=== PATIENT | female | born 1985 | race Caucasian/White ===

== ENCOUNTER 2017-06-09 11:20 | Outpatient (CLI) | payer BC | END 2017-06-09 11:21 | disposition home or self-care (01) | LOC: LAB 11:20 | PROVIDERS: ATTEND Psychiatry & Neurology Neurology | DX: E75.2 Other sphingolipidosis (principal) | CPT/HCPCS: 36415; 81330; 81599 ==

== ENCOUNTER 2017-09-23 15:08 | Outpatient (CLI) | payer BC, MEDICAID ==
[2017-09-23 15:45] LABS: ALBUMIN 4.3 g/dL (3.2-5.5); ALBUMIN/GLOBULIN RATIO 1.9 (1.0-2.2); BILIRUBIN,TOTAL 0.3 mg/dL (0.2-1.0); CALCIUM 9.1 mg/dL (8.5-10.3); CREATININE 0.7 mg/dL (0.4-1.0); TOTAL PROTEIN 6.6 g/dL (6.7-8.2)
[2017-09-23 15:52] LABS: BASOPHILS % (AUTO) 0.7 %; EOSINOPHILS # (AUTO) 0.1 10^3/uL (0.0-0.7); EOSINOPHILS % (AUTO) 1.7 %; HGB - HEMOGLOBIN 13.4 g/dL (12.0-16.0); LYMPHOCYTES # (AUTO) 2.1 10^3/uL (1.5-3.5); LYMPHOCYTES % (AUTO) 36.8 %; MEAN CORPUSCULAR HGB CONC 33.9 g/dL (32.0-36.0); MEAN CORPUSCULAR VOLUME 88.4 fL (81.0-99.0); MONOCYTES # (AUTO) 0.5 10^3/uL (0.0-1.0); NEUTROPHILS % (AUTO) 52.8 %; PLT - PLATELET COUNT 242 10^3/uL (130-450); RED BLOOD COUNT 4.48 10^6/uL (4.20-5.40); RED CELL DISTRIBUTION WIDTH 12.4 % (12.0-15.0); WHITE BLOOD COUNT 5.7 x10^3/uL (4.8-10.8)
== END 2017-09-23 15:09 | disposition home or self-care (01) ==
LOC: LAB 15:08
PROVIDERS: ATTEND Obstetrics & Gynecology
DX: Z01.812 Encounter for preprocedural laboratory examination (principal); T83.89XA Other specified complication of genitourinary prosthetic devices, implants and grafts, initial encounter; R80.9 Proteinuria, unspecified; Z13.9 Encounter for screening, unspecified
CPT/HCPCS: 36415; 80053; 84702; 85025

== ENCOUNTER 2017-09-24 09:41 | Day surgery (SDC) | payer BC, MEDICAID ==
--- NOTE | 2017-09-23 16:33 | PREOP HISTORY & PHYSICAL ---
DATE OF SERVICE: 09/24/2017 Physician: Wendi Dillon DO IDENTIFICATION: This is a 32-year-old G2, P2-0-0-2. HISTORY OF PRESENT ILLNESS: The patient presents today for her preoperative visit. Initially, I met the patient with her mother, Sonia, on 09/10/2017. The patient has had a Mirena placed shortly after her son was born, about 5 years ago. She was told that she needed it to be replaced in November of 2017. The patient unfortunately was found to have advanced frontotemporal dementia. She is currently under the care and living with her mother, Sonia Rincon. Sonia is her durable power of energy attorney for medicine. It has been easier for Sonia to care for the patient not having to worry about her menses. I attempted to replace her Mirena IUD on 09/10/2017, but I could not do this without the patient being in some amount of discomfort. Instead of attempting to have the patient return, Sonia has instead decided to have the patient do this under anesthesia. I discussed with Sonia the risks, benefits, alternatives, indications, expectations of a hysteroscopy, dilatation and curettage and replacement of Mirena IUD. Included in our discussion was the risk of anesthesia, hemorrhage, infection and damage to surrounding organs. With respect to damage to surrounding organs, the most common complication is uterine perforation. After Sonia's questions were answered to her satisfaction, she verbalized her desire to proceed with surgery. Consent forms have been signed. Currently, the patient has been diagnosed with a urinary tract infection. Prior to her visit with me, she just came from Rowan Kelley's office and was sent a prescription for antibiotics. Sonia also tells me that Rowan Kelley would like to have the patient's kidney functions tested. Finally, Sonia has remarked that the patient's neurologist, Rut Mckenzie MD at [facility] has recommended the patient to go under conscious sedation for anesthesia. Sonia did not know the specifics of why. Sonia also was concerned that there may be a side effect of the patient taking some medications, particularly when I gave her a prescription for Vicodin. She would like me to ask Dr. Mckenzie if with this was a contraindication for the patient. PAST MEDICAL HISTORY: 1. Advanced frontotemporal dementia. 2. Chronic pain. PAST SURGICAL HISTORY: 1. Tonsils and adenoids in 2002. 2. Excision of left flank lipoma. 3. In 2005, LEEP. 4. In 2010, left neck lymph nodes. 5. [place] teeth excision. MEDICATIONS: 1. Bupropion 100 mg 1 tab p.o. daily. 2. Sertraline 25 mg 1 tab p.o. daily. ALLERGIES: SULFA AND SHE HAS HIVES. SOCIAL HISTORY: The patient is under the care and living with her mother, Sonia Rincon. The patient is to César "Kain Barroso. He is currently living with their 2 children in [place]. The patient formerly was a legal aide. Rowan Kelley is her primary care provider and her pharmacy of choice is [facility] in [place], [place]. PAST OBSTETRICAL HISTORY: Two term spontaneous vaginal deliveries. PAST GYNECOLOGY HISTORY: Maryse does have a history of abnormal Pap smears with the resultant 2005 LEEP. She has a history of HPV condyloma. FAMILY HISTORY: She denies any female carcinoma. REVIEW OF SYSTEMS: Negative unless otherwise stated. She denies any nausea, vomiting, fevers, chills, diarrhea, constipation. PHYSICAL EXAMINATION: VITAL SIGNS: Height is 66 inches, weight 115 pounds, BMI is 18.6. Blood pressure is 110/60. GENERAL: The patient is a well-developed, very thin lady, who is very anxious. The patient is nonverbal, but does obey commands. During our first visit together, she was able to talk to me once her level of anxiety had decreased. At today's visit, the patient is ambulating and jumping around with her bottle of water. HEENT: Within normal limits. She does wear glasses. CARDIOVASCULAR: Rate is regular. No murmurs or rubs. PULMONARY: Lungs are clear to auscultation bilaterally. FEMALE EGBUS: Within normal limits. Vagina is pink and moist. Cervix within normal limits. UD strings were not visualized. ASSESSMENT: 1. A 32-year-old G2, P2-0-0-2. 2. Desires replacement of Mirena intrauterine device. PLAN: 1. We will proceed to a scheduled hysteroscopy and D and C and replacement of Mirena IUD on 09/24/2017. 2. The patient will get a test. 3. We will speak to Dr. Rut Mckenzie and ask her if there are any particular reasons why general anesthesia is contraindicated and why the patient will need conscious sedation. 4. The patient will seen me at [facility] in 2 weeks for a routine postop visit. TD: 09/23/2017 16:33 [facility]
[2017-09-24] MEDS ORDERED: CELECOXIB 100 MG CAPSULE PO ONE (09:55)
[2017-09-24] MEDS ORDERED: LACTATED RINGERS 1,000 ML IV ONE ×2 (10:17→11:48)
[2017-09-24] MEDS ORDERED: KETAMINE 500 MG/10 ML VIAL IVP ONE (10:40)
[2017-09-24] MEDS ORDERED: SODIUM CHLORIDE 0.9% 10 ML VIAL IV ONE (10:40)
[2017-09-24] MEDS ORDERED: MIDAZOLAM 2 MG/2 ML VIAL IVP ONE (10:40)
[2017-09-24] MEDS ORDERED: KETOROLAC 30 MG/ML VIAL IVP ONE (10:40)
--- NOTE | 2017-09-24 12:06 | OPERATIVE REPORT ---
Operative Report - Other Other Information/Narrative: Date of Operation: 09/24/2017 Surgeon: Wendi Dillon DO FACOG Signal Inspector: None Financial Aid: Celso Talavera CRNA Anesthesia: Conscious sedation Pre-op Dx: 1. 32 yo 2. Desired replacement of Mirena IUD Post-op Dx: 1. 32 yo 2. Desired replacement of Mirena IUD Procedure: 1. Dilation 2. Replacement of Mirena IUD 3. Pap smear Findings: 1. No IUD string seen on initial exam 2. Normal cervix 3. New Mirena IUD, LOT [id number] Specimens: 1. Mirena IUD 2. Thin prep with HR HPV Drains: None EBL: None Complications: None Dictation: [id number]
[2017-09-24 12:54] VITALS: BP 94/62
--- NOTE | 2017-09-24 12:59 | PROCEDURE REPORT ---
DATE OF SERVICE: 09/24/2017 PREOPERATIVE DIAGNOSES 1. A 32-year-old G2, P2-0-0-2. 2. Desired replacement of Mirena intrauterine device. POSTOPERATIVE DIAGNOSES 1. A 32-year-old G2, P2-0-0-2. 2. Desired replacement of Mirena intrauterine device. PROCEDURES PERFORMED 1. Dilatation. 2. Replacement of Mirena intrauterine device. 3. Pap smear. SURGEON: Wendi Dillon DO, FACOG HEAT TREATMENT TECHNICIAN: None AERIAL ADVERTISER: Celso Talavera CRNA ANESTHESIA: Conscious sedation. FINDINGS 1. No IUD string seen on initial cervical examination. 2. Normal cervix. 3. Mirena IUD, lot number [id number]. SPECIMENS 1. Mirena IUD. 2. ThinPrep with high risk human papilloma virus screening. DRAINS: None. ESTIMATED BLOOD LOSS: None. COMPLICATIONS: None. BRIEF HISTORY: The patient is a patient of [facility] who has an expiring Mirena IUD. It should be replaced in November 2017. I saw her in the clinic and unfortunately the IUD strings were not seen. I attempted to remove the IUD in the office, but unfortunately I could not do so without placing the patient in significant discomfort. At this point in time, Sonia Foss, the patient's mother and power of prosecuting attorney, desired to have her undergo replacement of her Mirena IUD under anesthesia. I discussed with Sonia the risks, benefits, alternatives, indications, expectations of a hysteroscopy, dilatation, curettage and replacement of Mirena IUD. I discussed with her the risks, which included anesthesia, hemorrhage, infection and damage to surrounding organs. With respect to damage to surrounding organs, this may include, but is not limited to, an inadvertent laceration, cauterization or trauma to adjacent organs. In this situation, the most common complication is uterine perforation. After Sonia's questions were answered to her satisfaction, she verbalized her desire to proceed with surgery. Consent forms have been signed. OPERATION IN DETAIL: The patient was identified, consented, and taken to the operating room where IV access was already in place. She was then given sequential compression devices and conscious sedation. She was then prepped and draped in normal sterile fashion in lithotomy position using the [place] stirrups. A timeout was performed, which correctly identified the patient, site of the procedure, and procedures themselves. Antibiotics were not indicated in this case. An open-sided speculum was placed in the vagina. A single-tooth tenaculum was placed on the anterior lip of the cervix. The cervix was serially dilated to a 6-Sinhala. The IUD was blindly grasped with graspers and removed easily. A new Mirena IUD was then replaced and the strings were trimmed approximately 3 cm from the external cervical os. Finally, a Pap smear was performed so that she would not have to have a Pap smear for another 5 years, assuming that the Pap smear and HPV were negative. At this point in time, the procedure had been completed. All instruments were removed from the vagina, and the vagina and cervix were found to be hemostatically stable. The patient was taken back to the recovery room in stable condition. I will see the patient and her mother, Sonia, in 2 weeks for routine postop visit. I have given Sonia prescriptions for ibuprofen as well as Vicodin for the patient's postop recovery. Sonia is to call should she have any worsening fevers, chills, abdominal pain or vaginal bleeding. All sponge and lap counts were correct x2 as per nurse report. cc: Treva De Guzman MD TD: 09/24/2017 12:34 [facility]
== END 2017-09-24 09:42 | disposition home or self-care (01) ==
LOC: SDS 09:41
PROVIDERS: ATTEND Obstetrics & Gynecology
PROC: 0U2DXHZ Change Contraceptive Device in Uterus and Cervix, External Approach (ICD-10-PCS; 2017-09-24)
PROC: 0U2DXHZ Change Contraceptive Device in Uterus and Cervix, External Approach (ICD-10-PCS; principal; 2017-09-24 11:00)
DX: Z30.433 Encounter for removal and reinsertion of intrauterine contraceptive device (principal); G31.09 Other frontotemporal neurocognitive disorder; F02.80 Dementia in other diseases classified elsewhere, unspecified severity, without behavioral disturbance, psychotic disturbance, mood disturbance, and anxiety
CPT/HCPCS: 58300; 58301; A9270; J7120; 88300

== ENCOUNTER 2017-10-30 23:03 | Emergency (ER) | payer BC, MEDICAID ==
[2017-10-30 23:11] VITALS: BP 98/59
[2017-10-31 00:44] LABS: BILIRUBIN,URINE NEGATIVE (NEGATIVE); GLUCOSE, URINE (UA) NEGATIVE (NEGATIVE); KETONES,URINE (UA) NEGATIVE (NEGATIVE); LEUKOCYTE ESTERASE, URINE NEGATIVE (NEGATIVE); NITRITE,URINE NEGATIVE (NEGATIVE); OCCULT BLOOD,URINE NEGATIVE (NEGATIVE); PH,URINE 6.5 PH (5.0-7.5); PROTEIN,URINE NEGATIVE (NEGATIVE); UROBILINOGEN,URINE 0.2 (NORMAL) E.U./dL (NORMAL)
[2017-10-31 00:46] LABS: CLARITY,URINE CLEAR (CLEAR); HCG UR QUAL NEGATIVE
--- NOTE | 2017-10-31 01:08 | ED Physician Documentation ---
PD HPI FEMALE - Stated complaint Stated Complaint: FREQ URINATION - Chief complaint Chief Complaint: Abd Pain - History obtained from History obtained from: Family - History of Present Illness Timing - onset: Today Timing - details: Gradual onset, Still present Associated symptoms: Urinary frequency Similar symptoms before: Work up / diagnostics, Treatment Recently seen: Not recently seen - Additional information Additional information: Patient is a 32 year old female with a rare genetic condition, frontal temporal dementia, who is brought in by parents for increased urinary frequency and agitation. Family states that they noticed her going to the bathroom multiple times today and she seemed more agitated than usual. Family reports that last time this happened patient had a urinary tract infection. Review of Systems Unable to obtain: Dementia PD PAST MEDICAL HISTORY - Past Medical History Past Medical History: Yes Other Past Medical History: Frontal Temporal Dementia - Past Surgical History Past Surgical History: No - Present Medications Home Medications: Ambulatory Orders Medication Instructions Recorded Confirmed Alprazolam [Xanax] 0 mg PO Q8HR PRN 09/24/17 09/24/17 Escitalopram [Lexapro] 20 mg PO DAILY 09/24/17 09/24/17 - Allergies Allergies/Adverse Reactions: Allergies Allergy/AdvReac Type Severity Reaction Status Date / Time Sulfa (Sulfonamide Allergy Unknown Verified 09/24/17 08:57 Antibiotics) - Social History Does the pt smoke?: No Smoking Status: Never smoker Does the pt drink ETOH?: No Does the pt have substance abuse?: No - Immunizations Immunizations are current?: No PD ED PE NORMAL - Vitals Vital signs reviewed: Yes - General General: No acute distress - HEENT HEENT: Atraumatic - Cardiac Cardiac: RRR - Respiratory Respiratory: No respiratory distress - Derm Derm: Normal color, No rash - Neuro Neuro: No motor deficit Eye Opening: Spontaneous PD ED PE EXPANDED - Neuro Neuro: Other (patient is awake and alert but non verbal, parents state at baseline) Results - Vitals Vitals: Vital Signs - 24 hr 10/30/17 23:08 Temperature 36.3 C L Heart Rate 69 Respiratory 20 Rate Blood Pressure 98/59 L O2 Saturation 97 Oxygen O2 Source Room air - Labs Labs: Laboratory Tests 10/31/17 00:22 Urine Color YELLOW Urine Clarity CLEAR Urine pH 6.5 Ur Specific [place] 1.010 Urine Protein NEGATIVE Urine Glucose (UA) NEGATIVE Urine Ketones NEGATIVE Urine Occult Blood NEGATIVE Urine Nitrite NEGATIVE Urine Bilirubin NEGATIVE Urine Urobilinogen 0.2 (NORMAL) Ur Leukocyte Esterase NEGATIVE Ur Microscopic Review NOT INDICATED Urine Culture Comments NOT INDICATED Urine HCG, Qual NEGATIVE PD MEDICAL DECISION MAKING - ED course Complexity details: reviewed old records, reviewed results, considered differential, d/w family ED course: patient was seen and examined at bedside. patient's urine was collected. when patient's urinalysis results came back there was no sign of infection. family was made aware of the findings and patient was stable for discharge with outpatient followup. - Sepsis Event Vital Signs: Vital Signs - 24 hr 10/30/17 23:08 Temperature 36.3 C L Heart Rate 69 Respiratory 20 Rate Blood Pressure 98/59 L O2 Saturation 97 Oxygen O2 Source Room air Departure - Departure Disposition: 01 Home, Self Care Clinical Impression: Urinary frequency Condition: Good Instructions: ED UTI Cystitis Female Follow-Up: Rowan Kelley ARNP [Primary Care Provider] - As Needed Comments: Your diagnostics today were within normal limits. there were no signs of urinary tract infection. you should follow up with your doctor if your symptoms persist. you may return to the emergency department at any time for new, worsening or uncontrollable symptoms. Discharge Date/Time: 10/31/17 00:59
== END 2017-10-31 00:59 | disposition home or self-care (01) ==
LOC: ED 23:03
DX: R35.0 Frequency of micturition (principal); F03.90 Unspecified dementia, unspecified severity, without behavioral disturbance, psychotic disturbance, mood disturbance, and anxiety
CPT/HCPCS: 81001; 81003; 81025; 87086; 99282; 99283

== ENCOUNTER 2017-11-16 13:18 | Outpatient (CLI) | END 2017-11-16 13:19 | disposition home or self-care (01) ==